=== PATIENT | female | born 2000 | race Caucasian/White ===

== ENCOUNTER 2021-09-08 22:45 | Emergency (ER) | payer MEDICAID ==
--- NOTE | 2021-09-08 23:13 | Emergency Department Report ---
HPI - General Chief Complaint: Vaginal Bleeding PUI?: No (Vaginal bleed) Time Seen by Provider: 09/08/21 23:03 - HPI HPI: I performed this history through an behavior management specialist trends leading into [place] from [place]. G2, P0 at 8+3 weeks comes in complaining of vaginal bleeding that started today with minimal suprapubic cramping nonradiating abdominal pain. The patient denies nausea vomiting fever chills or any other associated symptoms. Nothing makes it better nor worse. She has taken no medications for this. ED Past Medical Hx - Past Medical History Previous Medical History?: No - Surgical History Past Surgical History?: No - Social History Smoking Status: Never Smoker ED Review of Systems ROS: Stated complaint: VAGINAL BLEED Other details as noted in HPI Comment: All other systems reviewed and negative Physical Exam - Physical Exam Vital Signs: As charted by nursing Physical Exam: Physical Exam Constitutional: General: He is not in acute distress. Appearance: He is not diaphoretic. HENT: Head: Normocephalic. Eyes: Pupils: Pupils are equal, round, and reactive to light. Neck: Musculoskeletal: Normal range of motion. Cardiovascular: Rate and Rhythm: Normal rate and regular rhythm. Pulses: Intact distal pulses. Heart sounds: Normal heart sounds. No murmur. Pulmonary: Effort: No respiratory distress. Breath sounds: No wheezing or rales. Chest: Chest wall: No tenderness. Abdominal: General: There is no distension. Palpations: There is no mass. Tenderness: There is no abdominal tenderness. There is no guarding or rebound. Musculoskeletal: Normal range of motion. Skin: General: Skin is warm and dry. Neurological: Mental Status: He is alert and oriented to person, place, and time. Psychiatric: Mood and Affect: Mood and affect normal. Cognition and Memory: Memory normal. Judgment: Judgment normal. ED Course - Reevaluation(s) Reevaluation #1: 09/09/21 01:16 Through the behavior management specialist I explained to the patient that her beta hCG is lower than it should be for her gestational age. At this level below 2000 we are not likely to see anything on the ultrasound today directed her to return in 48 hours or 2 days to recheck her beta hCG. She expressed understanding through the behavior management specialist. She also knows to return if she gets severe abdominal pain of any other issues arise. The bleeding that she is experiencing is about the same or a little heavier than her regular period. Her laboratories here were otherwise unremarkable. The ultrasound did not show any . 09/09/21 01:18 ED Medical Decision Making - Lab Data Result diagrams: 09/08/21 23:23 Critical care attestation.: If time is entered above; I have spent that time in minutes in the direct care of this critically ill patient, excluding procedure time. ED Disposition Clinical Impression: Vaginal bleeding, Threatened miscarriage in early Disposition: 01 HOME / SELF CARE / HOMELESS Is pt being admited?: No Does the pt Need Aspirin: No Condition: Stable Instructions: Threatened Miscarriage Referrals: BRAN HO MD [Staff Physician] - 3-5 Days Time of Disposition: 01:20 Print Language: [place]
[2021-09-08 23:33] VITALS: BP 101/55
[2021-09-08 23:39] LABS: Basophils # (Auto) 0.1 K/mm3 (0.0-0.1); Basophils % (Auto) 0.8 % (0.0-1.8); Eosinophils # (Auto) 0.1 K/mm3 (0.0-0.4); Eosinophils % (Auto) 0.6 % (0.0-4.3); Hematocrit 41.1 % (30.3-42.9); Hemoglobin 13.8 gm/dl (10.1-14.3); Lymphocytes # (Auto) 1.8 K/mm3 (1.2-5.4); Lymphocytes % (Auto) 19.8 % (13.4-35.0); Mean Corpuscular HGB Conc 34 % (30-34); Mean Corpuscular Volume 91 fl (79-97); Monocytes # (Auto) 0.6 K/mm3 (0.0-0.8); Platelet Count 253 K/mm3 (140-440); Red Blood Count 4.51 M/mm3 (3.65-5.03); Red Cell Distribution Width 13.1 % (13.2-15.2)
[2021-09-09 00:19] LABS: Bilirubin,Urine NEG (Negative); Blood,Urine MOD (Negative); Color,Urine Yellow (Yellow); Protein,Urine <15 mg/dL mg/dL (Negative); RBC,Urine < 1.0 /HPF (0.0-6.0); Urobilinogen,Urine < 2.0 mg/dL (<2.0)
--- NOTE | 2021-09-09 01:24 | Ultrasound Report ---
US OB <= 14 weeks fetus INDICATION: Vag Bleed. TECHNIQUE: OB ultrasound transabdominal COMPARISON: None available. FINDINGS: No intrauterine or gestational sac is seen. The uterus measures 8.5 cm and the endometrial stripe measures 2 mm. Both ovaries are normal. There is no free fluid. IMPRESSION: 1. No intrauterine identified. Signer Name: Ha Angeles MD Signed: 09/09/2021 1:20 AM Workstation Name: [id number]
== END 2021-09-09 02:45 | disposition home or self-care (01) ==
LOC: ED 22:45
DX: O20.0 Threatened abortion (principal); O20.9 Hemorrhage in early pregnancy, unspecified; Z3A.08 8 weeks gestation of pregnancy
CPT/HCPCS: 36415; 76801; 81001; 84702; 84703; 85025; 86900; 86901; 99284